=== PATIENT | female | born 1990 | race Caucasian/White ===

== ENCOUNTER 2022-01-22 14:07 | Emergency (ER) | payer SELFPAY ==
[~2022-01-22 14:07] MED LIST: ADALAT CC30 MG PO; ALLEGRA ALLERG180 MG PO; DIASTAT PR; ECOTRIN81 MG PO; GLUCOPHAGE500 MG PO; IBUPROFEN600 MG PO; MAGIC MOUTH WASH PO; NORCO 5-325 TA1 EACH PO; NOVOLOG 10100 UNITS2 SQ; PRENATAL VITAM1 EAC8 PO; TOUJEO SQ; TYLENOL 325MG325 MG PO; VITAMIN D2000 UNI1 PO; [UNRECOGNIZED DRUG - CODE] SC
[2022-01-22 15:25] LABS: HEMOGLOBIN 13.4 gm/dl (12.3-15.3); RED BLOOD COUNT 4.16 M/UL (4.00-5.10); WHITE BLOOD COUNT 16.6 K/UL (4.5-11.0)
[2022-01-22 15:54] LABS: BUN/CREATININE RATIO 16 (0-10)
[2022-01-22] MEDS ORDERED: HYDROCODON-ACE1 EAC4 PO (19:17)
[2022-01-22] MEDS ORDERED: CEPHALEXIN500 M1 PO (19:37)
== END 2022-01-22 19:35 | disposition home or self-care (01) ==
LOC: ER1 14:07
PROVIDERS: Physician Assistant
DX: S52.572A Other intraarticular fracture of lower end of left radius, initial encounter for closed fracture (principal); S30.0XXA Contusion of lower back and pelvis, initial encounter; E11.9 Type 2 diabetes mellitus without complications; Z88.0 Allergy status to penicillin; V49.50XA Passenger injured in collision with unspecified motor vehicles in traffic accident, initial encounter; Y92.410 Unspecified street and highway as the place of occurrence of the external cause
CPT/HCPCS: 25605; 70450; 71260; 72125; 72128; 72131; 73110; 80053; 80307; 81001; 82009; 82150; 82962; 83690; 84703; 85025; 85610; 86900; 86901; 93005; 96361; 96374; 96375; 99152; 99284; G0480; J2270; J2405; J2704; Q9967

== ENCOUNTER 2022-01-24 17:19 | Emergency (ER) | payer BC ==
[~2022-01-24 17:19] MED LIST changes: +CEPHALEXIN500 M1 PO; +HYDROCODON-ACE1 EAC4 PO
== END 2022-01-24 17:46 | disposition left against medical advice (07) ==
LOC: ER1 17:19
DX: Z53.21 Procedure and treatment not carried out due to patient leaving prior to being seen by health care provider (principal)